=== PATIENT | female | born 1970 | race Two or more races ===

== ENCOUNTER 2023-09-14 10:03 | Outpatient (CLI) | payer OTHER | END 2023-09-14 10:09 | disposition home or self-care (01) | LOC: SONOGRAMA 10:03 | PROVIDERS: ATTEND Pathology Anatomic Pathology & Clinical Pathology | DX: E04.1 Nontoxic single thyroid nodule (principal) ==

== ENCOUNTER 2023-11-02 09:48 | Outpatient (CLI) | payer OTHER | END 2023-11-02 09:51 | disposition home or self-care (01) | LOC: SONOGRAMA 09:48 | PROVIDERS: ATTEND Pathology Anatomic Pathology & Clinical Pathology | DX: E04.1 Nontoxic single thyroid nodule (principal) ==